=== PATIENT | male | born 1985 | race African-American/Black ===

== ENCOUNTER 2017-11-18 01:57 | Emergency (ER) | payer OTHER ==
[~2017-11-18] VITALS: Ht 180.3 cm; Wt 117.0 kg
[~2017-11-18 01:57] MED LIST: NO HOME MEDS
[2017-11-18 05:24] VITALS: BP 144/80
== END 2017-11-18 05:46 | disposition short-term general hospital (02) ==
LOC: EME 01:57 → TRA 01:57
DX: S02.652B Fracture of angle of left mandible, initial encounter for open fracture (principal); Y04.2XXA Assault by strike against or bumped into by another person, initial encounter; Y07.9 Unspecified perpetrator of maltreatment and neglect; J45.909 Unspecified asthma, uncomplicated
CPT/HCPCS: 70450; 70486; 72125; 99281; 99284; J1170; J3010; J7030